=== PATIENT | female | born 1965 | race Caucasian/White ===

== ENCOUNTER → 2017-12-24 11:33 | Outpatient (CLI) | payer MEDICAID, SELFPAY ==
--- NOTE | 2017-12-24 16:05 | STRESSREP ---
Stress Test Report Treadmill EKG: Resting EKG: Normal sinus rhythm, normal axis, normal intervals, no evidence of previous myocardial infarction. Treadmill EKG: Patient exercise according to Wale protocol for 9 minutes and 0 seconds achieving a maximum workload of 10.1 METS. Resting heart rate was initially 75 beats a minute and edmundo to maximum 144 beats a minute which represents 85% of the maximal age corrected heart rate. Resting blood pressure was 152/98, edmundo to maximum of 200/108. Test was terminated due to attainment of target heart rate. During exercise patient's heart rating increased as expected. The patient had no dynamic EKG changes to suggest ischemia. No arrhythmias noted. Conclusions normal adequate treadmill EKG. Negative for ischemia by EKG criteria. No anginal symptoms noted. No arrhythmias noted. Hypertensive blood pressure response to exercise. Average exercise capacity for age. Test terminated due to the attainment of target heart rate. Patient tolerated the procedure well.
== END ==
PROVIDERS: Family Provider Internal Medicine; PCP Internal Medicine; Visit Provider Internal Medicine
DX: I48.92 Unspecified atrial flutter (principal); R07.9 Chest pain, unspecified
CPT/HCPCS: 93017; 93225; 93226

== ENCOUNTER → 2020-04-17 16:15 | Outpatient (CLI) | payer MEDICAID, SELFPAY ==
[2020-04-17 18:05] LABS: Absolute Lymphocyte Count 2.67 X10^3/uL (0.83-4.51); Basophil# 0.07 X10^3/uL; Basophil% 0.7 % (0-1); Eosinophil# 0.19 X10^3/uL; Eosinophils% 1.8 % (0-5); Hemoglobin 13.6 g/dL (12.0-15.0); Lymphocyte # 2.67 X10^3/ul (4.0); Mean Corp Hgb Conc 32.4 g/dL (32-36); Mean Corpuscular Volume 92.5 fL (81-99); Mean Platelet Vol. 9.1 fl (6.2-12.0); Monocyte# 0.75 X10^3/uL; NRBC Flagged by Analyzer 0 % (0-5); Neutrophil # 6.98 X10^3/uL (2.7-7.7); Neutrophil % 65.2 % (47-70); Platelet Count 452 K/mm3 (150-450); RBC Distribution Width CV 13.1 % (11.6-14.6); RBC Distribution Width SD 44.4 fl (35.1-43.9); Red Blood Count 4.54 M/mm3 (4.2-5.4); White Blood Count 10.7 K/mm3 (4.4-11.0)
[2020-04-17 18:34] LABS: ALB/GLOB Ratio 0.9 RATIO (0.9-2.4); AST(SGOT) 19 U/L (15-37); Alanine Aminotransfer ALT/SGPT 54 U/L (13-56); Albumin, Serum 3.4 g/dL (3.2-5.0); Alkaline Phosphatase 125 U/L (45-117); Anion Gap 5 (5-15); BUN 18 mg/dL (7-18); BUN/Creat Ratio 25.5 RATIO (10-20); Calcium,Total 9.4 mg/dL (8.5-10.1); Chloride 110 mmol/L (98-107); Creatinine, Serum 0.71 mg/dL (0.55-1.02); EST Glomerular Filtration Rate 92 mL/min (>60); Est Glom Filt Rate - Afr Amer 111 mL/min (>60); Globulin 3.7 g/dL (2.2-4.2); Glucose 96 mg/dL (74-106); Potassium 4.1 mmol/L (3.5-5.1); Protein, Total 7.1 g/dL (6.4-8.2); Sodium Level 141 mmol/L (136-145)
== END ==
PROVIDERS: PCP Internal Medicine; Referring Provider Dermatology; Visit Provider Dermatology
DX: L40.8 Other psoriasis (principal)
CPT/HCPCS: 36415; 80053; 85025

== ENCOUNTER 2020-05-09 22:47 | Emergency (ER) | payer MEDICAID, SELFPAY ==
[2020-05-09 22:48] VITALS: BP 131/74; PULSE 114; RESP 18; TEMP 36.2; O2SAT 96; BMI 32.6
--- NOTE | 2020-05-09 23:11 | ED.VIS.GEN ---
History of Present Illness Chief Complaint: Rash Narrative: Patient is a 54-year-old female who presents with concern for parasitic infection. She states she was bit by something a few months ago. Since that time she has noticed a rash on her body. She states that she has seen worms coming out of her skin eyes mouth and stool. She has been seen multiple times at an outpatient hospital. She was told they saw no evidence of parasitic infection. She had stool for ova and parasites which was reportedly negative. She is seeing a manager beverage. She has been treated with a steroid cream. She states that she recently had her vision go dim but this is since resolved. She is worried that she has worms in her eyes. She also complains of the feeling like there are worms in her head and liver. Past Medical History - Allergies and Home Meds Allergies/Adverse Reactions: Allergies No Known Allergies Allergy (Verified 05/09/20 22:51) Primary Care Physician: Valerie Medina MD [Primary Care Provider] - Past Medical History: - - Hypertension, cannabis abuse Smoking Status: Current every day smoker Review of Systems All systems negative except as indicated General: Denies: Fever Eyes: Reports: Visual changes - bilaterally ENT: Reports: Bilateral ear pain Cardiovascular: Denies: Chest pain Respiratory: Denies: Dyspnea, Cough Gastrointestinal: Reports: Constipation. Denies: Nausea, Diarrhea Musculoskeletal: Denies: Myalgias, Arthralgias Skin: Denies: Rash Neurological: Denies: Headache Hematologic: Denies: Easy bruising Allergy: Denies: Uticaria Physical Exam Vital Signs/Narrative: Vital Signs Temp Pulse Resp BP Pulse Ox 05/09/20 22:48 97.2 F L 114 H 18 131/74 H 96 Inital Vital Signs reviewed: Yes General: Well nourished Head: Normocephalic Eyes: EOMI, - - Funduscopic examination limited due to myosis but no obvious abnormality, normal sclera ENT: Moist mucous membranes Neck: Supple Cardiovascular: Regular rate, Regular rhythm Respiratory: No distress, CTA bilaterally. 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 I see no obvious evidence of a parasitic infection but I did write a repeat order for stool ova and parasites. Given that she has a foreign body sensation in her eye and reports transient visual changes I referred her to ophthalmology for further eye exam. I advised that she follow-up with her primary care physician. ED Disposition - Plan for ED Patient: Disposition: Home or Assisted Living Diagnosis: Feared condition not demonstrated Referrals: Valerie Medina MD [Primary Care Provider] - Delilah Mandujano MD [STAFF PHYSICIAN] -
--- NOTE | 2020-05-09 23:42 | ED.RN ---
SUPPLIES GIVEN FOR STOOL SAMPLE. PT STATES SHE WANTS TO DROP SAMPLE OFF AT [facility] IT IS CLOSER TO HER FRIEND WHO IS HER HOME CARE AND HOME HEALTH AIDES TEACHER. ORDER FORM SHOULD BE ACCEPTABLE THERE IT HAS ALL REQUIRED INFORMATION ON IT. EDUCATED PT ON SAMPLE COLLECTION TECHNIQUES, PT STATERS SHE HAS GIVEN A STOOL SAMPLE BEFORE. ALL QUESTIONS ANSWERED, NO FURTHER CONCERNS.
== END 2020-05-09 23:43 | disposition home or self-care (01) ==
PROVIDERS: Emergency Provider Emergency Medicine; PCP Internal Medicine
DX: Z71.1 Person with feared health complaint in whom no diagnosis is made (principal); H53.8 Other visual disturbances; F17.200 Nicotine dependence, unspecified, uncomplicated
CPT/HCPCS: 99281

== ENCOUNTER → 2020-11-09 14:25 | Outpatient (CLI) | payer MEDICAID, SELFPAY ==
[2020-11-09 15:48] LABS: Absolute Lymphocyte Count 2.59 X10^3/uL (0.83-4.51); Basophil# 0.09 X10^3/uL; Basophil% 1.2 % (0-1); Eosinophil# 0.31 X10^3/uL; Hemoglobin 15.2 g/dL (12.0-15.0); Lymphocyte # 2.59 X10^3/ul (0.83-4.51); Lymphocyte % 33.5 % (19-41); Mean Corp Hgb Conc 32.3 g/dL (32-36); Mean Corpuscular Hgb 30.1 pg (27.0-32.0); Mean Corpuscular Volume 93.1 fL (81-99); Mean Platelet Vol. 8.9 fl (6.2-12.0); Monocyte# 0.75 X10^3/uL; Monocyte% 9.7 % (0-10); NRBC Flagged by Analyzer 0 % (0-5); Neutrophil # 3.96 X10^3/uL (2.7-7.7); Neutrophil % 51.3 % (47-70); Platelet Count 538 K/mm3 (150-450); Red Blood Count 5.05 M/mm3 (4.2-5.4); White Blood Count 7.7 K/mm3 (4.4-11.0)
[2020-11-09 16:10] LABS: AST(SGOT) 30 U/L (15-37); Alanine Aminotransfer ALT/SGPT 61 U/L (13-56); Albumin, Serum 3.9 g/dL (3.2-5.0); Alkaline Phosphatase 138 U/L (45-117); Anion Gap 6 (5-15); BUN 14 mg/dL (7-18); BUN/Creat Ratio 17.9 RATIO (10-20); Calcium,Total 9.3 mg/dL (8.5-10.1); Chloride 107 mmol/L (98-107); Creatinine, Serum 0.78 mg/dL (0.55-1.02); EST Glomerular Filtration Rate 81 mL/min (>60); Est Glom Filt Rate - Afr Amer 99 mL/min (>60); Glucose 96 mg/dL (74-106); Potassium 3.9 mmol/L (3.5-5.1); Protein, Total 7.9 g/dL (6.4-8.2); Sodium Level 138 mmol/L (136-145); Thyroid Stim Hormone (TSH) 1.83 uIU/mL (0.358-3.74)
== END ==
PROVIDERS: PCP Family Medicine Geriatric Medicine; Visit Provider Family Medicine Geriatric Medicine
DX: R53.83 Other fatigue (principal)
CPT/HCPCS: 36415; 80053; 84443; 85025

== ENCOUNTER → 2020-12-07 16:50 | Outpatient (CLI) | payer MEDICAID, SELFPAY ==
[2020-12-07 17:46] LABS: ALB/GLOB Ratio 0.9 RATIO (0.9-2.4); AST(SGOT) 53 U/L (15-37); Alanine Aminotransfer ALT/SGPT 93 U/L (13-56); Albumin, Serum 3.6 g/dL (3.2-5.0); Alkaline Phosphatase 166 U/L (45-117); Anion Gap 7 (5-15); BUN 16 mg/dL (7-18); BUN/Creat Ratio 19.5 RATIO (10-20); Calcium,Total 9.5 mg/dL (8.5-10.1); Chloride 103 mmol/L (98-107); Creatinine, Serum 0.82 mg/dL (0.55-1.02); EST Glomerular Filtration Rate 77 mL/min (>60); Est Glom Filt Rate - Afr Amer 93 mL/min (>60); Globulin 3.9 g/dL (2.2-4.2); Glucose 141 mg/dL (74-106); Potassium 3.2 mmol/L (3.5-5.1); Protein, Total 7.5 g/dL (6.4-8.2); Sodium Level 138 mmol/L (136-145)
== END ==
PROVIDERS: PCP Family Medicine Geriatric Medicine; Visit Provider Family Medicine Geriatric Medicine
DX: R74.8 Abnormal levels of other serum enzymes (principal)
CPT/HCPCS: 36415; 80053

== ENCOUNTER → 2020-12-22 10:17 | Outpatient (CLI) | payer MEDICAID, SELFPAY ==
--- NOTE | 2020-12-22 10:18 | US_ITS ---
rScriptor Unformatted Report Format: Options: n 2f 2i act cap dr bray wm wcta sl lj Gender: Female Age: 55 years Exam: US Abdomen RUQ (limited) Comparison: History: LIVER ENZYMES ABN -- hx of cholecystectomy Contrast: Liver measures 19 cm. Impression new. Hepatomegaly. Cholecystectomy. Increased echogenicity of the liver is nonspecific but most commonly associated with hepatic steatosis. Impression. No hepatic masses. Electronically Signed: Milton Rivero MD (Brooks) at 16:25 EDT , Service support , US/Abdomen Limited
== END ==
PROVIDERS: PCP Family Medicine Geriatric Medicine; Referring Provider Family Medicine Geriatric Medicine; Visit Provider Family Medicine Geriatric Medicine
DX: R94.5 Abnormal results of liver function studies (principal)
CPT/HCPCS: 76705

== ENCOUNTER → 2021-01-23 10:25 | Outpatient (CLI) | payer MEDICAID, SELFPAY ==
--- NOTE | 2021-01-23 10:30 | US_ITS ---
STUDY: ABDOMINAL ULTRASOUND - ELASTOGRAPHY REASON FOR VISIT: Female, 55 years old. Fatty infiltration of the liver. TECHNIQUE: Liver stiffness measurements were obtained on a [employer] RS 85 ultrasound machine using a CA 1-7 probe following the SRU guidelines. 3 measurements were obtained using a 2-D-SWE method. The IQR/M was 11% suggesting a quality data set. TECHNICAL QUALITY: Adequate. COMPARISON: Comparison is made with prior sonogram dated 12/22/2020. FINDINGS: Liver: Fatty infiltration of the liver. Hepatomegaly. Median liver stiffness measured 5.5 kPa. US/Elastography Parenchyma/Organ IMPRESSION: Liver stiffness measures 5.5 kPa compatible with F1 Metavir score. Electronically Signed: Dustin Mcbride MD at 13:55 EDT , Service support ,
== END ==
PROVIDERS: PCP Family Medicine Geriatric Medicine; Referring Provider Family Medicine Geriatric Medicine; Visit Provider Family Medicine Geriatric Medicine
DX: K76.0 Fatty (change of) liver, not elsewhere classified (principal)
CPT/HCPCS: 76981

== ENCOUNTER → 2021-02-26 16:11 | Outpatient (CLI) | payer MEDICAID, SELFPAY ==
[2021-02-26 17:48] LABS: Absolute Lymphocyte Count 2.13 X10^3/uL (0.83-4.51); Absolute Neutrophil Count 6.7 X10^3/uL (2.0-7.7); Basophil# 0.07 X10^3/uL; Basophil% 0.7 % (0-1); Eosinophil# 0.27 X10^3/uL; Eosinophils% 2.6 % (0-5); Hematocrit 44.7 % (37-47); Hemoglobin 14.3 g/dL (12.0-15.0); Lymphocyte # 2.13 X10^3/ul (0.83-4.51); Lymphocyte % 20.7 % (19-41); Mean Corpuscular Hgb 29.4 pg (27.0-32.0); Mean Corpuscular Volume 91.8 fL (81-99); Mean Platelet Vol. 9.2 fl (6.2-12.0); Monocyte# 1.07 X10^3/uL; Monocyte% 10.4 % (0-10); NRBC Flagged by Analyzer 0 % (0-5); Neutrophil # 6.72 X10^3/uL (2.7-7.7); Neutrophil % 65.3 % (47-70); Platelet Count 461 K/mm3 (150-450); RBC Distribution Width CV 12.8 % (11.6-14.6); RBC Distribution Width SD 42.6 fl (35.1-43.9); Red Blood Count 4.87 M/mm3 (4.2-5.4); White Blood Count 10.3 K/mm3 (4.4-11.0)
[2021-02-26 18:10] LABS: Anion Gap 5 (5-15); BUN 16 mg/dL (7-18); BUN/Creat Ratio 17.9 RATIO (10-20); Calcium,Total 9.5 mg/dL (8.5-10.1); Chloride 104 mmol/L (98-107); EST Glomerular Filtration Rate 70 mL/min (>60); Est Glom Filt Rate - Afr Amer 84 mL/min (>60); Glucose 110 mg/dL (74-106); Potassium 3.6 mmol/L (3.5-5.1); Sodium Level 139 mmol/L (136-145)
== END ==
PROVIDERS: PCP Family Medicine Geriatric Medicine; Referring Provider Dermatology Pediatric Dermatology; Visit Provider Dermatology Pediatric Dermatology
DX: L29.9 Pruritus, unspecified (principal)
CPT/HCPCS: 36415; 80048; 85025

== ENCOUNTER → 2021-03-19 | Outpatient (CLI) | payer MEDICAID, SELFPAY ==
[2021-03-23 13:38] LABS: HPV APTIMA, High Risk Negative (Negative)
== END | disposition home or self-care (01) ==
PROVIDERS: PCP Family Medicine Geriatric Medicine; Visit Provider Nurse Practitioner Women's Health
DX: Z12.4 Encounter for screening for malignant neoplasm of cervix (principal)
CPT/HCPCS: 87624; 88175; G0145

== ENCOUNTER → 2024-09-29 | Outpatient (CLI) | payer MEDICAID, SELFPAY ==
--- NOTE | 2024-09-29 16:38 | RAD_ITS ---
PROCEDURE: CHEST PA AND LATERAL REASON FOR EXAM: 59-year-old female, bronchiectasis and shortness of breath x 8 years. TECHNIQUE: Frontal and lateral views of the chest. COMPARISON: None. FINDINGS: The heart size is normal. The mediastinal contour is unremarkable. Ill-defined density within the posterior mediastinum, visualized on the lateral radiograph. Additional small density within the left upper lobe measuring approximately 0.9 cm. Bibasilar atelectasis/scarring. No pleural effusion or pneumothorax. Degenerative changes are identified within the thoracic spine. Cholecystectomy clips. RAD/Chest PA and Lateral IMPRESSION: 1. Questionable ill-defined density within the posterior mediastinum, which may represent overlapping tissues, however pulmonary mass can not be excluded. Follow-up chest CT should be obtained if not recentl y performed for further evaluation. 2. Additional small left upper lobe density, which may represent a granuloma. This can also be evaluated on CT chest. Reading Location: [id number]
[2024-09-29 16:47] LABS: Absolute Lymphocyte Count 2.87 X10^3/uL (0.83-4.51); Absolute Neutrophil Count 7.8 X10^3/uL (2.0-7.7); Basophil# 0.11 X10^3/uL; Basophil% 0.9 % (0-1); Eosinophil# 0.27 X10^3/uL; Eosinophils% 2.2 % (0-5); Hematocrit 44.1 % (37-47); Hemoglobin 14.6 g/dL (12.0-15.0); Lymphocyte # 2.87 X10^3/ul (0.83-4.51); Lymphocyte % 23.5 % (19-41); Mean Corp Hgb Conc 33.1 g/dL (32-36); Mean Corpuscular Volume 90.6 fL (81-99); Mean Platelet Vol. 8.7 fl (6.2-12.0); NRBC Flagged by Analyzer 0 % (0-5); Neutrophil # 7.78 X10^3/uL (2.7-7.7); Neutrophil % 63.7 % (47-70); Platelet Count 500 K/mm3 (150-450); RBC Distribution Width CV 12.8 % (11.6-14.6); RBC Distribution Width SD 42.1 fl (35.1-43.9); Red Blood Count 4.87 M/mm3 (4.2-5.4); White Blood Count 12.2 K/mm3 (4.4-11.0)
[2024-09-29 16:59] LABS: D-Dimer Quantitative (DVT/PE) 0.33 FEU/ug/m (0.27-0.49)
[2024-09-29 20:20] LABS: ALB/GLOB Ratio 1.1 RATIO (0.9-2.4); AST(SGOT) 30 U/L (<=31); Alanine Aminotransfer ALT/SGPT 56 U/L (<=34); Alkaline Phosphatase 152 U/L (35-104); Anion Gap 15 (5-15); BUN 9 mg/dL (4-19); BUN/Creat Ratio 14.4 RATIO (10-20); Calcium,Total 9.6 mg/dL (7.6-11.0); Carbon Dioxide 23.6 mmol/L (21.0-32.0); Chloride 100 mmol/L (98-108); Cholesterol 271 mg/dL (<=200); EST Glomerular Filtration Rate 104 (>60); Globulin 3.5 g/dL (2.2-4.2); Glucose 88 mg/dL (70-99); Hepatitis C Antibody Nonreactive (Nonreactive); High Density Lipoprotein 50 mg/dL; Low Density Lipoprotein Calc. 179 mg/dL; Potassium 4.1 mmol/L (3.3-5.1); Protein, Total 7.5 g/dL (5.9-8.4); Sodium Level 139 mmol/L (133-145); Total Bilirubin 0.27 mg/dL (0.00-1.30); Triglycerides 213 mg/dL; Very Low Density Lipoprotein 43 mg/dL (5-40); cholesterol:hdl ratio screen 5.43
== END | disposition home or self-care (01) ==
PROVIDERS: PCP Family Medicine Geriatric Medicine; Visit Provider Family Medicine Geriatric Medicine
DX: Z13.89 Encounter for screening for other disorder (principal); J47.9 Bronchiectasis, uncomplicated; E78.5 Hyperlipidemia, unspecified; R68.83 Chills (without fever); R53.83 Other fatigue
CPT/HCPCS: 36415; 71046; 80053; 80061; 84443; 85025; 85379; 86803; 87070; 87077; 87102; 87205; 87206; 87631

== ENCOUNTER → 2024-10-13 | Outpatient (CLI) | payer MEDICAID, SELFPAY ==
--- NOTE | 2024-10-13 13:26 | BI_ITS ---
EXAM: SCRN MAMM (CAD)W/TREVON BILAT 10/13/2024 CLINICAL HISTORY: F, Age 59 y/o , SCREENING TECHNIQUE: Bilateral Diagnostic digital breast tomosynthesis with 2D and 3D images. Computer aided detection. COMPARISON: No actual films are available for comparison. A prior screening mammogram report from the [facility] dated 12/31/2017 was reviewed. FINDINGS: TISSUE DENSITY: The breast tissue is composed of scattered area of fibroglandular density. Bilateral Breast Mammographic Findings: There are no suspicious masses, suspicious calcifications, architectural distortion or secondary signs of malignancy identified in either breast. Benign-appearing round microcalcifications are seen in both breasts. BI/SCRN MAMM (CAD)W/TREVON BILAT IMPRESSION: Right Breast: BIRADS 2 BENIGN FINDING. Left Breast: BIRADS 2 BENIGN FINDING. OVERALL FINAL ASSESSMENT: BIRADS 2 BENIGN FINDING. RECOMMENDATION: Routine annual follow-up in 1 Year A letter with findings and recommendations will be mailed to the patient. Reading Location: [id number]
== END | disposition home or self-care (01) ==
LOC: OPBI 13:24
PROVIDERS: PCP Family Medicine Geriatric Medicine; Referring Provider Family Medicine Geriatric Medicine; Visit Provider Family Medicine Geriatric Medicine
DX: Z12.31 Encounter for screening mammogram for malignant neoplasm of breast (principal)
CPT/HCPCS: 77063; 77067

== ENCOUNTER → 2024-10-14 | Outpatient (CLI) | payer MEDICAID, SELFPAY ==
[2024-10-14 16:34] LABS: AST(SGOT) 38 U/L (<=31); Alanine Aminotransfer ALT/SGPT 56 U/L (<=34); Albumin, Serum 4.1 g/dL (3.5-5.0); Alkaline Phosphatase 141 U/L (35-104); Bilirubin, Direct 0.08 mg/dL (0.00-0.30); Globulin 3.6 g/dL (2.2-4.2); Protein, Total 7.7 g/dL (5.9-8.4); Total Bilirubin 0.22 mg/dL (0.00-1.30)
[2024-10-14 16:49] LABS: Hepatitis B Surface Antibody Nonreactive; Hepatitis B Surface Antigen Nonreactive (Nonreactive)
[2024-10-16 05:07] LABS: GGTP 235 IU/L (0-60); Hepatitis A AB, Total Negative (Negative); Hepatitis B Core Ab Total Negative (Negative)
== END | disposition home or self-care (01) ==
LOC: LAB 15:33
PROVIDERS: PCP Family Medicine Geriatric Medicine; Referring Provider Nurse Practitioner Acute Care; Visit Provider Nurse Practitioner Acute Care
DX: R74.8 Abnormal levels of other serum enzymes (principal); R14.0 Abdominal distension (gaseous); R10.9 Unspecified abdominal pain; R19.7 Diarrhea, unspecified; R15.9 Full incontinence of feces
CPT/HCPCS: 36415; 80076; 82977; 86704; 86706; 86708; 87340

== ENCOUNTER → 2024-10-25 | Outpatient (CLI) | payer MEDICAID, SELFPAY ==
--- NOTE | 2024-10-25 13:40 | CT_ITS ---
PROCEDURE: LOW DOSE CT LUNG SCREENING 10/25/2024 REASON FOR EXAM: NICOTINE DEPENDENCE, CIGARETTES, UNCOMPLICATED TECHNIQUE: Low Dose CT Lung screening without contrast. Coronal and Sagittal reconstruction series were provided. One or more dose reduction techniques were used (e.g., Automated exposure control, adjustment of the mA and/or kV according to patient size, use of iterative reconstruction technique). REFERENCE LINK: Driver[facility] Lung-RADS RADIATION DOSE SUMMARY: CTDlvol: 3.02 mGy DLP: 90.25 mGycm COMPARISON: Chest radiograph dated September 29, 2024. FINDINGS: PULMONARY NODULES: (Only nodules >3mm are reported) Nodules described below are on series 1 unless otherwise specified. Pulmonary Nodules: 7 mm calcified granuloma in the posterior aspect of the left upper lobe as seen on axial image number 49 no suspicious nodules are seen. Findings suggestive of linear scarring at the lung bases slightly worse in the posterior medial aspects of both lower lobes. This most likely corresponds to the findings on the chest radiograph. Hardware:None Lymph Nodes:No mediastinal lymph nodes are seen. Heart and Vasculature:UnremarkableAtherosclerotic calcifications of the thoracic aorta. Thoracic aorta and pulmonary arteries have normal contours; noncontrast technique limits evaluation. Coronary Artery Calcifications: Absent Lungs and Airways: Findings suggestive of scarring at the lung bases. Pleura:Unremarkable Upper Abdomen:Unremarkable Bones:Degenerative changes of the thoracic spine. CT/Low Dose CT Lung Screening IMPRESSION: No suspicious nodules are seen. Findings suggestive of scarring at the lung ba ses. Coronary artery calcification (CAC) is is absent Lung-RADS Category: 2 BENIGN (BASED ON IMAGING FEATURES OR INDOLENT BEHAVIOR). RECOMMEND 12-MONTH SCREENING LDCT. Other Significant Findings: None. Reading Location: [facility]
== END | disposition home or self-care (01) ==
LOC: CT 13:35
PROVIDERS: PCP Family Medicine Geriatric Medicine; Referring Provider Family Medicine Geriatric Medicine; Visit Provider Family Medicine Geriatric Medicine
DX: Z12.2 Encounter for screening for malignant neoplasm of respiratory organs (principal); F17.210 Nicotine dependence, cigarettes, uncomplicated; R06.02 Shortness of breath
CPT/HCPCS: 71271

== ENCOUNTER → 2024-11-11 | Outpatient (CLI) | payer MEDICAID, SELFPAY ==
[2024-11-11 17:02] LABS: Prothrombin Time (Protime)PT. 12.9 SECONDS (11.7-14.9)
[2024-11-11 17:55] LABS: AST(SGOT) 27 U/L (<=31); Alanine Aminotransfer ALT/SGPT 47 U/L (<=34); Albumin, Serum 4.3 g/dL (3.5-5.0); Alkaline Phosphatase 149 U/L (35-104); Bilirubin, Direct 0.11 mg/dL (0.00-0.30); Ferritin 145 ng/mL (22-378); Globulin 3.4 g/dL (2.2-4.2); Iron 76 ug/dL (50-170); Iron Binding Capacity,Total 359 ug/dL (250-450); Iron Binding Capacity,Unsat 283 ug/dL (228-428); Protein, Total 7.7 g/dL (5.9-8.4); Total Bilirubin 0.27 mg/dL (0.00-1.30)
[2024-11-15 13:08] LABS: ANTINUCLEAR ANTIBODIES DIRECT Negative (Negative); Anti-Mitochondrial AB <20.0 Units (0.0-20.0)
[2024-11-16 10:08] LABS: Anti-Smooth Muscle ABS 3 Units (0-19); Cytoplasmic Ab (C-ANCA) <1:20 titer (Neg:<1:20); Immunoglobulin A 257 mg/dL (87-352); Perinuclear Ab (P-ANCA) <1:20 titer (Neg:<1:20); t-Transglutaminase IgA <2 U/mL (0-3)
== END | disposition home or self-care (01) ==
LOC: LAB 15:56
PROVIDERS: PCP Family Medicine Geriatric Medicine; Referring Provider Nurse Practitioner Acute Care; Visit Provider Nurse Practitioner Acute Care
DX: R19.7 Diarrhea, unspecified (principal); R74.8 Abnormal levels of other serum enzymes; R94.5 Abnormal results of liver function studies
CPT/HCPCS: 36415; 80076; 82728; 82784; 83516; 83540; 83550; 85610; 86037; 86038

== ENCOUNTER → 2024-12-07 | Outpatient (CLI) | payer MEDICAID, SELFPAY ==
--- NOTE | 2024-12-07 07:42 | US_ITS ---
PROCEDURE: ABD LIMITED W/ ELASTOGRAPHY REASON FOR EXAM: ADD SPLEEN Fatty infiltration of the liver. COMPARISON: None. TECHNIQUE: Right upper quadrant abdominal ultrasound. Eran ElastQ Imaging shear wave elastography for non-invasive assessment of liver tissue stiffness. Eran EPIQ Elite. FINDINGS: LIVER: Size: Enlarged (hepatomegaly) Length: 19.2 cm Echotexture: Diffusely echogenic suggesting fatty infiltration Contour: Normal Lesions: None identified Elastography: EQI Med: 9.13 kPa EQI Med Terrence: 1.73 m/s IQR/Med: 22 %* GALLBLADDER: Surgically absent. COMMON BILE DUCT: Normal measuring 4 mm . PANCREAS: Normal Visualized portions of the right kidney are unremarkable. No right upper quadrant ascites. Spleen: The spleen measures 9.9 cm x 3.8 cm x 3.7 cm. US/ABD Limited w/ Elastography IMPRESSION: MODERATE TO SEVERE HEPATIC FIBROSIS F2/F3 Reference Values: SRU <1.37 m/s (5.7kPa): No to mild fibrosis 1.37 m/s - 2.2 m/s: Moderate to severe fibrosis >2.2 m/s (15kPa): Significant fibrosis / cirrhosis METAVIR Score F2 or higher: 1.34 m/s (5.7kPa) F3 or higher: 1.55 m/s (7.3kPa) F4: 1.80 m/s (10kPa) * If the IQR/Med is >30%, the variance in the measurements is a large and the a ccuracy of the measurement may be in question. Reading Location: [facility]
== END | disposition home or self-care (01) ==
LOC: US 07:38
PROVIDERS: PCP Family Medicine Geriatric Medicine; Referring Provider Nurse Practitioner Acute Care; Visit Provider Nurse Practitioner Acute Care
DX: K74.00 Hepatic fibrosis, unspecified (principal)
CPT/HCPCS: 76705; 76981

== ENCOUNTER 2024-12-23 05:34 | Day surgery (SDC) | payer MEDICAID, SELFPAY ==
[2024-12-23 06:00] VITALS: BP 161/83; PULSE 97; RESP 18; TEMP 37; O2SAT 96; BMI 32.2
[2024-12-23] MEDS: Lactated Ringers 1,000 ML 15 ML IV (06:12)
--- NOTE | 2024-12-23 06:24 | PCM.PRE.AN2 ---
ASA Classification* ASA Classification ASA Classification: 3 (HTN, COPD, smoker ) Assessment & Plan Anesthesia* Anesthesia Assessment Anesthesia Assessment: Discussed sedation and/or anesthesia options, risks, benefits, and alternatives with patient/parents/legal guardian/POA. Questions invited. The patient/parents/legal guardian/POA seems to understand and agrees to proceed with anesthesia plan. Reviewed the physical assessment, medical history, allergy history and patient home medications list prior to surgery/procedure/anesthetic and documented any changes. Performed airway and anesthesia risk assessments. Anesthesia Type Anesthesia Type: General History Source History Obtained from:: Patient and Chart Anesthesia Focused Assessment* Temperature: 98.6 F Pulse Rate: 97 Blood Pressure: 161/83 Respiratory Rate: 18 Pulse Ox: 96 Oxygen Delivery Method: Room Air Airway Assessment Mouth opens: >3 cm Mallampati Score: II Teeth Condition: Intact Neck Range of motion (ROM): Full ROM Focused Labs Anesthesia Preop lab: CBC WBC 12.2 K/mm3 (4.4-11.0) H 09/29/24 16:21 09/29/24 RBC 4.87 M/mm3 (4.2-5.4) 09/29/24 16:21 09/29/24 Hgb 14.6 g/dL (12.0-15.0) 09/29/24 16:21 09/29/24 Hct 44.1 % (37-47) 09/29/24 16:21 09/29/24 Plt Count 500 K/mm3 (150-450) H 09/29/24 16:21 09/29/24 CHEMISTRY Potassium 4.1 mmol/L (3.3-5.1) 09/29/24 16:21 09/29/24 Sodium 139 mmol/L (133-145) 09/29/24 16:21 09/29/24 BUN 9 mg/dL (4-19) 09/29/24 16:21 09/29/24 Creatinine 0.60 mg/dL (0.70-1.20) L 09/29/24 16:21 09/29/24 Glucose 88 mg/dL (70-99) 09/29/24 16:21 09/29/24 TSH 1.630 uIU/mL (0.300-4.200) 09/29/24 16:21 09/29/24 COAG PT 12.9 SECONDS (11.7-14.9) 11/11/24 16:14 11/11/24 Pre-Assessment Diagnosis/Proposed Procedure Planned Operative Procedure(s): EGD, COLONOSCOPY Anesthesia History Anesthesia History - sound cutter: Anesthesia History - sound cutter Hx Hospitalization No 12/17/24 14:37 Any Problems With Anesthesia No 12/17/24 14:37 Cholinesterase deficiency No 12/17/24 14:37 You/Your Family Experience No 12/17/24 14:37 fever (hyperthermia) with Relationship Recent Exposure to Contagious No 12/23/24 05:58 Disease Does patient have nerve No 12/17/24 14:37 stimulator Patient instructed to have device shut off --Does patient have Pacemaker No 12/23/24 06:00 or ICD? When Was Last Pacemaker Check QUESTION #4 FULL TEXT: You/Your Family Experience fever (hyperthermia) with Anesthesia Last Oral Intake Last Oral intake: Last Oral Intake NPO since 00:00 12/23/24 06:00 Meds taken in AM with sips of water? Meds patient instructed to take am of surgery PONV PONV - sound cutter: PONV - sound cutter Female Yes 12/17/24 14:37 HX of Motion Sickness Yes 12/17/24 14:37 HX of N/V After Surgery No 12/17/24 14:37 Non-Smoker No 12/17/24 14:37 Duration of Surgery greater No 12/17/24 14:37 than 60 minutes Number of Risk Factors 2 12/17/24 14:37 PONV Score Moderate Risk 12/17/24 14:37 Height & Weight Height & Weight: Anesthesia: Height & Weight Height 5 ft 3 in 12/23/24 06:00 Weight: 82.554 kg 12/23/24 06:00 Body Mass Index (BMI) 32.2 12/23/24 06:00 Respiratory Assessment Respiratory Assessment - sound cutter: Respiratory Tract Infection Hx - sound cutter Hx Respiratory Tract Infection No 12/17/24 14:37 STOP Sleep Apnea STOP Sleep Apnea - sound cutter: STOP Sleep Apnea - sound cutter Hx Hypertension Yes 12/17/24 14:37 Hx Sleep Apnea No 12/17/24 14:37 CPAP BIPAP Do you snore loudly (louder No 12/17/24 14:37 than talking or can be heard Do you often feel tired/ No 12/17/24 14:37 fatigued/ sleepy during daytime? Has anyone observed you stop No 12/17/24 14:37 breathing during sleep? STOP Results Negative 12/17/24 14:37 QUESTION #5 FULL TEXT : Do you snore loudly (louder than talking or can be heard through closed doors)? Tobacco Use History Tobacco Use History - sound cutter: Tobacco Use History - sound cutter Tobacco Use Smoking Status Current every day smoker 12/17/24 14:37 Hx Tobacco Use Yes 12/17/24 14:37 Years Smoking Packs Smoked per Day Smoking Cessation Date was within the last 15 years Hx Smoking Cessation Date Hx Smoking Cessation Counseling Hematologic Medial History Hematologic Hx - sound cutter: Hematologic Medical Hx - clinical documentation specialist Hx of Blood Transfusion No 12/17/24 14:37 Hx of Transfusion in last 3 No 12/17/24 14:37 Months Date of Last Transfusion (if within last 3 months) Ever experience any problems No 12/17/24 14:37 with transfusion(s)? Specify any problems Hx of Preganancy in last 3 No 12/17/24 14:37 Months Nurse Filling Out Transfusion CECIL 12/17/24 14:37 & Questions: Date: 12/17/24 12/17/24 14:37 Time: 14:39 12/17/24 14:37 Patient unable to answer at this time (ie. confused, unrespo /Reproduction History /Reproductive History - sound cutter: /Reproductive Hx- sound cutter Hx Now No 12/17/24 14:37 Gestational Age (in weeks): EDC: Hx Hx Para Hx Section SAB No 12/17/24 14:37 Active Medications Active Medications: Current Medications Generic Name Dose Route Start Last Admin Trade Name Freq PRN Reason Stop Dose Admin Lactated Ringer's 1,000 mls @ 15 mls/hr 12/23/24 05:45 12/23/24 06:12 IV 15 mls/hr .Q48H IQRA Administration PFSH Medical History (Updated 12/17/24 @ 14:48 by Annetta Miller) Difficulty swallowing Post-menopausal Redness of skin Gastric reflux Smoker Shortness of breath on exertion Hoarseness History of edema History of Holter monitoring History of stress test Hypertension Hyperlipidemia Tobacco abuse Scabies Home Medications ?Medication ?Instructions ?Recorded ?Last Taken ?Type albuterol sulfate 90 mcg/actuation 1 inh inhalation Q4-6H PRN 10/11/24 Unknown History breath activated powder inhaler shortness of breath 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 10/11/24 Unknown History ondansetron HCl 4 mg tablet 4 mg PO Q8H #5 tabs 10/14/24 Unknown Rx peg 3350-electrolytes 236 240 ml PO Q10M #4,000 mL 10/14/24 12/22/24 Rx gram-22.74 gram-6.74 gram-5.86 gram solution (Golytely) losartan 100 mg tablet 100 mg PO QDAY 11/24/24 12/23/24 04:00 History metoprolol tartrate 25 mg tablet 12.5 mg PO BID 11/24/24 12/22/24 History Allergy/AdvReac Type Severity Reaction Status Date / Time No Known Allergies Allergy Verified 12/23/24 05:56 Family History Father Diabetes Mother CAD (coronary artery disease) CKD stage 4 due to type 1 diabetes mellitus Hyperlipidemia Uterine cancer Hypothyroidism Other Alzheimer's dementia Cancer Hypertension Surgical History (Updated 12/17/24 @ 14:37 by Annetta Miller) History of tonsillectomy History of esophagogastroduodenoscopy (EGD) History of colonoscopy H/O dilation and curettage History of lumpectomy of left breast History of cholecystectomy Social History household members: none number of children: 1 current occupational status: unemployed history of recent travel: No Smoking Status: Current every day smoker tobacco type: cigarettes alcohol intake: current alcohol intake frequency: a few times a month substance use type: former substance user what type of physical activity do you participate in: other frequency: daily seatbelt use: always do you feel safe at home: Yes additional social history: single Review of Systems (Anesthesia) ROS Narrative System reviewed and no additional complaints, except as documented. Physical Exam Const alert, oriented x3 and average body habitus Resp normal respiratory effort, normal air movement and clear to auscultation bilaterally Cardio regular rate, regular rhythm, no murmurs and diaphoretic
[2024-12-23 06:25] VITALS: BP 161/83; PULSE 97; RESP 18; TEMP 37; O2SAT 96
--- NOTE | 2024-12-23 06:30 | EGD_PTH ---
PATIENT: JERO VALDOVINOS LOC: [facility] U#:[id number] AGE/SX: 59/F ROOM: RE12/23/[address]: Dr. Stefano Talbot DO : 1965 BED: DIS: 12/23/2024 SPEC #: [id number] RECD: 12/23/24 09:30 STATUS: SHEELA MACY #: [id number] VARSHA: 12/23/24 06:[address]: Stefano Talbot DEPT: SURGICAL PATHOLOGY RECD BY: Melvin Olsen ENTERED: 12/23/24 10:29 SP TYPE: EGD BIOPSY MARY DR: Dr. Gabo Godinez MD Tissues: A - Duodenum, NOS B - Gastric mucous membrane C - Esophagus, NOS D - Ileum, NOS E - COLON BIOPSY Procedures: Immunohistochemical Stains Surgery Specimen Level IV HEADER OPERATION: Colonoscopy, EGD, biopsy PRE-OP DIAGNOSIS: Abdominal pain, abdominal distention, elevated liver enzymes TISSUE SUBMITTED: A- Duodenum biopsy, B- Gastric body biopsy, C- Distal esophagus biopsy, D- Terminal ileum biopsy, E- Random colon biopsy MICROSCOPIC DIAGNOSIS A. Small bowel, duodenum, biopsy: * Normal villous architecture with focal slight intraepithelial lymphocytosis - see note. * Note: This pattern of injury is etiologically nonspecific?and the differential diagnosis includes sensitivity to gluten and non-gluten proteins, small intestinal bacterial overgrowth, stasis related changes, infection, protein calorie malnutrition, tropical sprue, and medication injury (NSAIDs, Olmesartan / Benicar, Mycophenolic acid, Idelalisib, for example). If celiac disease is a clinical concern, additional clinical studies, such as tTG-IgA, are recommended. B. Stomach, body, biopsy: * Oxyntic mucosa with features of reactive gastropathy. * IHC negative for H pylori organisms. C. Esophagus, distal, biopsy: * Benign squamous mucosa. * Columnar mucosa with goblet cell metaplasia - see note. * Negative for dysplasia. * Note: The diagnosis depends on the location of the biopsy and the extent of the mucosal irregularity. If the biopsy originates from the tubular esophagus and the mucosal irregularity extends at least 1 cm above the top of the gastric folds, this represents Borrero mucosa. If the biopsy originates from the gastric cardia and/or the mucosal irregularity is less than 1 cm in extent, this represents intestinal metaplasia. D. Small bowel, terminal ileum, biopsy: * No specific pathologic change. E. Colon, random, biopsy: * No specific pathologic change. MICROSCOPIC DESCRIPTION Slides are reviewed. GROSS DESCRIPTION A. Received in formalin in a container labeled with the patient's name, date of , and duodenum biopsy are multiple ibarra-pink fragments of mucosal tissue measuring 1.5 x 0.5 x 0.2 cm in aggregate. Submitted in toto in A1. B. Received in formalin in a container labeled with the patient's name, date of , and gastric body biopsy are 2 ibarra-pink fragments of mucosal tissue measuring 0.3 x 0.3 x 0.2 cm and 0.5 x 0.2 x 0.2 cm. Submitted in toto in B1. C. Received in formalin in a container labeled with the patient's name, date of , and distal esophagus biopsy are 2 white-pink fragments of mucosal tissue each measuring 0.3 x 0.3 x 0.3 cm. Submitted in toto in C1. D. Received in formalin in a container labeled with the patient's name, date of , and terminal ileum biopsy are 2 ibarra-pink fragments of mucosal tissue each measuring 0.3 x 0.3 x 0.2 cm. Submitted in toto in D1. E. Received in formalin in a container labeled with the patient's name, date of , and random colonic biopsy are multiple ibarra-pink fragments of mucosal tissue measuring 1.3 x 0.7 x 0.3 cm in aggregate. Submitted in toto in E1. [facility] 12-23-2024 CPT:[id number] ADDENDUM ADDENDUM ADDENDUM ADDENDUM ADDENDUM ADDENDUM ADDENDUM ADDENDUM ADDENDUM ADDENDUM ADDENDUM ADDENDUM 04/14/2025 08:48 ADDENDUM 04/14/2025 08:48 ADDENDUM 04/14/2025 08:48 ADDENDUM 04/14/2025 08:48 ADDENDUM 04/14/2025 08:48 This addendum is added to incorporate an outside pathology consultation report. Bridj - TISSUE CYPHER - Block C1 Risk class: Low Risk Score: 3.9 5-year probability of progression: 3% Please see complete above mentioned consultation report in EMR
--- NOTE | 2024-12-23 06:54 | PCM.HP.STD ---
HPI - General General Date of Admission: 12/23/24 Date of Service: 12/23/24 HPI Narrative JERO VALDOVINOS, is a 59 F who presents for evaluation of abdominal pain. Elastography 01/23/2001 Liver stiffness measures 5.5 kPa compatible with F1 Metavir score. ABD US 12/22/2020 liver steatosis 09/29/2024 ALT 56, ALP 152, HCV Ab negative [facility] Est OV 3.20.25- [facility] established for yeast in stool, elevated liver enzymes, abdominal pain. reports every single doctor has pushed me out the door and says I'm crazy. she reports she is very sick. reports she completed stool testing with [facility] in [place]. she states she was treated with Ivermectin. she reports the past two weeks she feels fluid build up in her abdomen resulting in diarrhea with fecal incontinence. she is presently on Ivermectin. Colonoscopy per patient was last performed within the past 12 years, she states this was normal. denies any family h/o colon CA. 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 she has tattoos. denies any family h/o liver disease. denies any h/o IVDU. states her liver enzymes were high 2 weeks ago. she reports she has been drinking oregano oil for her lungs. states she was an occasional alcohol drinker, denies any alcohol recently. last had a twisted tea 3 months ago. denies any h/o heavy drinking. she denies taking any NSAIDS. intermittent HB. she reports she has a CT of lung coming up, ECHO and PFT OV 11.24. Test results from [place] have not been received. Reports PCP encouraged stopping oregano oil d/t elevated liver enzymes, although did not take advice. Started all natural liver cleanse and continues Ivermectin. Reports abdominal pain and bloating has improved over last 3 weeks. Patient complained that she has some more infestation and she is taking ivermectin prescribed by Dr. Godinez [facility] Medical History Difficulty swallowing Post-menopausal Redness of skin Gastric reflux Smoker Shortness of breath on exertion Hoarseness History of edema History of Holter monitoring History of stress test Hypertension Hyperlipidemia Tobacco abuse Scabies Home Medications ?Medication ?Instructions ?Recorded ?Last Taken ?Type albuterol sulfate 90 mcg/actuation 1 inh inhalation Q4-6H PRN 10/11/24 Unknown History breath activated powder inhaler shortness of breath 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 10/11/24 Unknown History ondansetron HCl 4 mg tablet 4 mg PO Q8H #5 tabs 10/14/24 Unknown Rx peg 3350-electrolytes 236 240 ml PO Q10M #4,000 mL 10/14/24 12/22/24 Rx gram-22.74 gram-6.74 gram-5.86 gram solution (Golytely) losartan 100 mg tablet 100 mg PO QDAY 11/24/24 12/23/24 04:00 History metoprolol tartrate 25 mg tablet 12.5 mg PO BID 11/24/24 12/22/24 History Allergy/AdvReac Type Severity Reaction Status Date / Time No Known Allergies Allergy Verified 12/23/24 05:56 Family History Father Diabetes Mother CAD (coronary artery disease) CKD stage 4 due to type 1 diabetes mellitus Hyperlipidemia Uterine cancer Hypothyroidism Other Alzheimer's dementia Cancer Hypertension Surgical History History of tonsillectomy History of esophagogastroduodenoscopy (EGD) History of colonoscopy H/O dilation and curettage History of lumpectomy of left breast History of cholecystectomy Social History household members: none number of children: 1 current occupational status: unemployed history of recent travel: No Smoking Status: Current every day smoker tobacco type: cigarettes alcohol intake: current alcohol intake frequency: a few times a month substance use type: former substance user what type of physical activity do you participate in: other frequency: daily seatbelt use: always do you feel safe at home: Yes additional social history: single ROS Constitutional Constitutional: Denies fatigue, fever(s), poor appetite, weight gain or weight loss Gastrointestinal Gastrointestinal: Denies belching, bloating, change in bowel habits, change in stool character, chewing difficulty, coffee ground emesis, constipation, cramping, diarrhea, dyspepsia, dysphagia, early satiety, excessive flatus, fecal incontinence, heartburn, hematemesis, hematochezia, hemorrhoids, loose stools, melena, nausea, odynophagia, rectal bleeding, tenesmus, vomiting or weight changes Vital Signs Vital Signs Vital Signs: 12/23/24 05:58 12/23/24 06:00 12/23/24 06:25 Temperature 98.6 F 98.6 F Temperature Source Temporal Pulse Rate 97 97 Respiratory Rate 18 18 Respiratory Pattern Normal Blood Pressure 161/83 H 161/83 H Blood Pressure Mean 109 Blood Pressure Source Monitor Blood Pressure Position Semi-Fowlers Blood Pressure Location Left Arm Pulse Ox 96 96 Oxygen Delivery Method Room Air Room Air Weight Weight: 182 lb Body Mass Index (BMI) 32.2 Physical Exam Const alert, oriented x3 and average body habitus Resp normal respiratory effort, normal air movement and clear to auscultation bilaterally Cardio regular rate, regular rhythm, no murmurs and diaphoretic Assessment & Plan Assessment/Plan (1) Abdominal pain: QUALIFIERS: Abdominal location: generalized Qualified Code(s): R10.84 - Generalized abdominal pain (2) Abdominal distension: (3) Elevated liver enzymes: PLAN: Assessment and Plan Assessment and Plan (1) Elevated liver enzymes: Status: Acute Plan: Elevated liver enzymes probably due to DILI, drug-induced liver injury. Patient states about 20 years ago she was told that she will need liver transplant and was exposed to arsenic from her work. She received some chelating agent. She has d complaints of liver is squeezing and falling out of the place. She also takes ivermectin, organo oil and other herbal medication. P-ANCA is positive. Comprehensive labs to rule out other causes of liver injury ordered. She is scheduled for liver ultrasound with elastography. Follow-up with Marcus Ortiz in 3-month (2) Diarrhea: Status: Acute Qualifiers: Diarrhea type: presumed infectious Qualified Code(s): R19.7 - Diarrhea, unspecified Plan:
[2024-12-23 07:40] VITALS: BP 127/82; BP 161/83; PULSE 99; RESP 18; TEMP 36.7; O2SAT 96
--- NOTE | 2024-12-23 07:44 | PCM.POST.ANE ---
Anesthesia: Postop Eval I Current Vital Signs Temperature: 98 F Pulse Rate: 98 Blood Pressure: 127/82 Respiratory Rate: 18 Pulse Ox: 98 Oxygen Delivery Method: Room Air Assessment Airway patent: Yes Spontaneous unlabored respirations: Yes Mental status: Awake and Calm nausea: No Vomiting: No Anesthesia Complication: No Fluid Hydration Crystalloid volume administer (ml): 700 Total IV fluid infused: 700 Progress Note Anesthesia document: Postop Eval 1 completed: Yes
[2024-12-23 07:45] VITALS: BP 115/91; BP 127/82; BP 161/83; PULSE 98; RESP 18; TEMP 36.6; O2SAT 97; O2SAT 98
--- NOTE | 2024-12-23 07:45 | OP.EGD_ITS ---
Patient Name: Abeba Juarez Procedure Date: 12/23/2024 6:18 AM Date of : 1965 Age: 59 Procedure: Upper GI endoscopy Indications: Epigastric abdominal pain, Functional Dyspepsia, Indigestion Providers: Stefano Talbot DO Referring MD: Gabo Godinez MD Medicines: Propofol per Anesthesia Patient Profile: This is a 59 year old female. Refer to note in patient chart for documentation of history and physical. Patient has symptoms of chronic abdominal cramping, chronic epigastric abdominal pain, chronic dyspepsia and chronic nausea. Complications: No immediate complications. Procedure: Pre-Anesthesia Assessment: - Prior to the procedure, a History and Physical was performed, and patient medications and allergies were reviewed. The patient is competent. The risks and benefits of the procedure and the sedation options and risks were discussed with the patient. All questions were answered and informed consent was obtained. Patient identification and proposed procedure were verified by the physician in the pre-procedure area. Mental Status Examination: alert and oriented. Airway Examination: normal oropharyngeal airway and neck mobility. Respiratory Examination: clear to auscultation. CV Examination: normal. Prophylactic Antibiotics: The patient does not require prophylactic antibiotics. Prior Anticoagulants: The patient has taken no anticoagulant or antiplatelet agents except for NSAID medication. ASA Grade Assessment: II - A patient with mild systemic disease. After reviewing the risks and benefits, the patient was deemed in satisfactory condition to undergo the procedure. The anesthesia plan was to use monitored anesthesia care (MAC). Immediately prior to administration of medications, the patient was re-assessed for adequacy to receive sedatives. The heart rate, respiratory rate, oxygen saturations, blood pressure, adequacy of pulmonary ventilation, and response to care were monitored throughout the procedure. The physical status of the patient was re-assessed after the procedure. After obtaining informed consent, the endoscope was passed under direct vision. Throughout the procedure, the patient's blood pressure, pulse, and oxygen saturations were monitored continuously. The colonoscope was introduced through the mouth, and advanced to the fourth part of the duodenum. Small bowel enteroscopy was deemed necessary. The upper GI endoscopy was accomplished without difficulty. The patient tolerated the procedure well. Scope In: 7:05:21 AM Scope Out: 7:09:31 AM Total Procedure Duration Time 0 hours 4 minutes 10 seconds Findings: LA Grade A (one or more mucosal breaks less than 5 mm, not extending between tops of 2 mucosal folds) esophagitis with no bleeding was found 38 to 40 cm from the incisors. Biopsies were taken with a cold forceps for histology. Verification of patient identification for the specimen was done. Estimated blood loss was minimal. A hiatal hernia was present. Patchy mildly erythematous mucosa without bleeding was found in the gastric body. Biopsies were taken with a cold forceps for histology. Verification of patient identification for the specimen was done. Estimated blood loss was minimal. Biopsies were taken with a cold forceps for Helicobacter pylori testing. Patchy mildly erythematous mucosa without active bleeding and with no stigmata of bleeding was found in the entire duodenum. Biopsies were taken with a cold forceps for histology. Verification of patient identification for the specimen was done. Estimated blood loss was minimal. Impression: - LA Grade A reflux esophagitis with no bleeding. Biopsied. - Hiatal hernia. - Erythematous mucosa in the gastric body. Biopsied. - Erythematous duodenopathy. Biopsied. Recommendation: - Discharge patient to home. - Resume previous diet. - Continue present medications. - Await pathology results. Procedure Code(s): --- Professional --- 80716, Small intestinal endoscopy, enteroscopy beyond second portion of duodenum, not including ileum; with biopsy, single or multiple CPT copyright 2021 [employer]. All rights reserved. The codes documented in this report are preliminary and upon chemical cell changer review may be revised to meet current compliance requirements. Stefano Talbot DO 12/23/2024 7:44:09 AM This report has been signed electronically. Number of Addenda: 0 Note Initiated On: 12/23/2024 6:18 AM
--- NOTE | 2024-12-23 07:45 | OP.CCLET_ITS ---
12/23/2024 Gabo Godinez MD [address] [place] [address] Re : Upper GI endoscopy procedure for Abeba Juarez Dear Dr. Godinez This procedure was performed on November. My impressions and recommendations are as follows: Impressions : - LA Grade A reflux esophagitis with no bleeding. Biopsied. - Hiatal hernia. - Erythematous mucosa in the gastric body. Biopsied. - Erythematous duodenopathy. Biopsied. Recommendations : - Discharge patient to home. - Resume previous diet. - Continue present medications. - Await pathology results. My findings are described in the full procedure note, which is enclosed. If I can be of further assistance, please feel free to contact me at . Sincerely, Stefano Talbot, 12/23/2024 7:44:09 AM This report has been signed electronically.
--- NOTE | 2024-12-23 07:48 | OP.CCLET_ITS ---
12/23/2024 Gabo Godinez MD [address] [place] [address] Re : Colonoscopy procedure for Abeba Juarez Dear Dr. Godinez This procedure was performed on November. My impressions and recommendations are as follows: Impressions : - Diverticulosis in the recto-sigmoid colon, in the sigmoid colon, in the descending colon and at the splenic flexure. - Congested mucosa in the entire examined colon. Biopsied. - Congested mucosa in the terminal ileum. Biopsied. Recommendations : - Discharge patient to home. - Resume previous diet. - Continue present medications. - Await pathology results. - Repeat colonoscopy in 5 years for surveillance. My findings are described in the full procedure note, which is enclosed. If I can be of further assistance, please feel free to contact me at . Sincerely, Stefano Talbot, 12/23/2024 7:47:42 AM This report has been signed electronically.
--- NOTE | 2024-12-23 07:48 | OP.COLON_ITS ---
Patient Name: Abeba Juarez Procedure Date: 12/23/2024 7:09 AM Date of : 1965 Age: 59 Procedure: Colonoscopy Indications: Screening for colorectal malignant neoplasm Providers: Stefano Talbot DO Referring MD: Gabo Godinez MD Medicines: Monitored Anesthesia Care Patient Profile: This is a 59 year old female. Refer to note in patient chart for documentation of history and physical. Patient has symptoms of chronic abdominal cramping, chronic epigastric abdominal pain, chronic dyspepsia and chronic nausea. Last Colonoscopy: several years ago. Complications: No immediate complications. Procedure: Pre-Anesthesia Assessment: - Prior to the procedure, a History and Physical was performed, and patient medications and allergies were reviewed. The patient is competent. The risks and benefits of the procedure and the sedation options and risks were discussed with the patient. All questions were answered and informed consent was obtained. Patient identification and proposed procedure were verified by the physician in the pre-procedure area. Mental Status Examination: alert and oriented. Airway Examination: normal oropharyngeal airway and neck mobility. Respiratory Examination: clear to auscultation. CV Examination: normal. Prophylactic Antibiotics: The patient does not require prophylactic antibiotics. Prior Anticoagulants: The patient has taken no anticoagulant or antiplatelet agents except for NSAID medication. ASA Grade Assessment: II - A patient with mild systemic disease. After reviewing the risks and benefits, the patient was deemed in satisfactory condition to undergo the procedure. The anesthesia plan was to use monitored anesthesia care (MAC). Immediately prior to administration of medications, the patient was re-assessed for adequacy to receive sedatives. The heart rate, respiratory rate, oxygen saturations, blood pressure, adequacy of pulmonary ventilation, and response to care were monitored throughout the procedure. The physical status of the patient was re-assessed after the procedure. After I obtained informed consent, the scope was passed under direct vision. Throughout the procedure, the patient's blood pressure, pulse, and oxygen saturations were monitored continuously. The colonoscope was introduced through the anus and advanced to the terminal ileum. The colonoscopy was performed without difficulty. The patient tolerated the procedure well. The quality of the bowel preparation was adequate. The terminal ileum, ileocecal valve, appendiceal orifice, and rectum were photographed. Scope In: 7:12:04 AM Scope Withdrawal Time 0 hours 11 minutes 50 seconds Scope Out: 7:33:03 AM Total Procedure Duration Time 0 hours 20 minutes 59 seconds Findings: The perianal and digital rectal examinations were normal. Multiple small and large-mouthed diverticula were found in the recto-sigmoid colon, sigmoid colon, descending colon and splenic flexure. An area of mildly congested mucosa was found in the entire colon. Biopsies were taken with a cold forceps for histology. Verification of patient identification for the specimen was done. Estimated blood loss was minimal. A patchy area of the terminal ileum was congested. Biopsies were taken with a cold forceps for histology. Verification of patient identification for the specimen was done. Estimated blood loss was minimal. Impression: - Diverticulosis in the recto-sigmoid colon, in the sigmoid colon, in the descending colon and at the splenic flexure. - Congested mucosa in the entire examined colon. Biopsied. - Congested mucosa in the terminal ileum. Biopsied. Recommendation: - Discharge patient to home. - Resume previous diet. - Continue present medications. - Await pathology results. - Repeat colonoscopy in 5 years for surveillance. Procedure Code(s): --- Professional --- 27836, Colonoscopy, flexible; with biopsy, single or multiple CPT copyright 2021 [employer]. All rights reserved. The codes documented in this report are preliminary and upon electric shovel operator review may be revised to meet current compliance requirements. Stefano Talbot DO 12/23/2024 7:47:42 AM This report has been signed electronically. Number of Addenda: 0 Note Initiated On: 12/23/2024 7:09 AM
[2024-12-23 07:50] VITALS: BP 139/90; BP 161/83; PULSE 98; RESP 18; TEMP 36.4; O2SAT 96
[2024-12-23 08:11] VITALS: BP 161/83
--- NOTE | 2024-12-23 11:09 | PCM.POSTANE2 ---
Anesthesia Postop Eval I Sum Postop Eval Completion status Anesthesia document: Postop Eval 1 completed: Yes Anesthesia Postop Eval I Summary Anesthesia Postop Eval I Summary: Anesthesia Postop Eval I: Assessment Summary Airway patent Yes 12/23/24 07:45 [email or web address] Spontaneous unlabored Yes 12/23/24 07:45 [email or web address] respirations Mental status Awake,Calm 12/23/24 07:45 [email or web address] nausea No 12/23/24 07:45 [email or web address] Vomiting No 12/23/24 07:45 [email or web address] Anesthesia Postop Eval I: Fluid Summary Crystalloid volume administer 700 12/23/24 07:45 [email or web address] (ml) Colloids volume administered ( ml) Blood Product volume administered (ml) Total IV fluid infused 700 12/23/24 07:45 [email or web address] Anesthesia Postop Eval I: Summary Notes Anesthesia Complication No 12/23/24 07:45 [email or web address] Anesthesia Complication Comment: Post-operative progress note Anesthesia: Postop Eval II Evaluation Mental status: Awake Pain Level: 0 nausea: No Vomiting: No Complications Anesthesia Complication: No
== END 2024-12-23 08:12 | disposition home or self-care (01) ==
LOC: EN 05:34 → AC 05:43
PROVIDERS: PCP Family Medicine Geriatric Medicine; Referring Provider Family Medicine Geriatric Medicine; Visit Provider Internal Medicine Gastroenterology
PROC: 0DJD8ZZ Inspection of Lower Intestinal Tract, Via Natural or Artificial Opening Endoscopic (ICD-10-PCS; CPT 45378; principal; 2024-12-23 06:25)
DX: Z12.11 Encounter for screening for malignant neoplasm of colon (principal); K57.30 Diverticulosis of large intestine without perforation or abscess without bleeding; K21.00 Gastro-esophageal reflux disease with esophagitis, without bleeding; K31.89 Other diseases of stomach and duodenum; K44.9 Diaphragmatic hernia without obstruction or gangrene; R74.01 Elevation of levels of liver transaminase levels; R19.7 Diarrhea, unspecified; I10 Essential (primary) hypertension; F17.210 Nicotine dependence, cigarettes, uncomplicated; Z79.899 Other long term (current) drug therapy
CPT/HCPCS: 45380; 44361; 88305; 88342; J2405

== ENCOUNTER → 2024-12-27 | Outpatient (CLI) | payer MEDICAID, SELFPAY ==
--- NOTE | 2024-12-27 14:14 | CT_ITS ---
PROCEDURE: CT SOFT TISSUE NECK WITH CONTRAST 12/27/2024 REASON FOR EXAM: SWELLING MASS AND LUMP ON NECK DIFFICULTY SWALLOWING. ENDOSCOPE SHOWED MASS. VOCAL CHANGES. TECHNIQUE: CT of the soft tissues of the neck from the orbits to the upper mediastinum with intravenous contrast. Contiguous axial scans of 2.5 mm slice thicknesses. Sagittal and coronal reconstruction images were obtained. One or more dose reduction techniques were used (e.g., automated exposure control, adjustment of mA and/or kv according to patient size, use of iterative reconstruction technique). CONTRAST: ISOVUE 370 VOLUME: 75 mL RADIATION DOSE SUMMARY: DLP: 602.04 mGycm COMPARISON: NO RELEVANT PRIOR. FINDINGS: The neck compartments are well demarcated. No abnormality seen in the nasopharynx. No abnormality seen in the oropharynx. Unremarkable parapharyngeal fat space. A slightly lobulated mass is seen in the left side of the hypopharynx at the base of the tongue just anterior to the epiglottis. This mass measures 2.0 x 1.0 cm, axial image 66. Salivary glands: Parotid, submandibular, and thyroid glands are unremarkable. Lymph nodes: No suspicious lymphadenopathy. Vasculature: Unremarkable. Orbits: Unremarkable. Paranasal sinuses and mastoids: No signs of inflammation. Lung apices: Unremarkable. Upper mediastinum: No aneurysms, adenopathy, or other abnormalities. Bones: Mild multilevel spondylosis. Degenerative arthritic change involving the atlantoaxial articulation. Other: Artifact from dental enhancements. CT/Soft Tissue Neck WITH Contrast IMPRESSION: 1. A left-sided base of the tongue lobulated mass, 2.0 x 1.0 cm. This mass is most concerning for carcinoma. 2. Other nonacute findings detailed above. Reading Location: [place] [id number]
== END | disposition home or self-care (01) ==
LOC: CT 13:53
PROVIDERS: PCP Family Medicine Geriatric Medicine
DX: R22.1 Localized swelling, mass and lump, neck (principal)
CPT/HCPCS: 70491; Q9967

== ENCOUNTER → 2025-02-24 | Outpatient (CLI) | payer MEDICAID, SELFPAY ==
[2025-02-24 10:46] LABS: Hematocrit 48.2 % (37-47); Hemoglobin 16.0 g/dL (12.0-15.0); Immature Granulocytes Count 0.030 X10^3/uL (0.0-0.0); Mean Corp Hgb Conc 33.2 g/dL (32-36); Mean Corpuscular Volume 90.6 fL (81-99); Mean Platelet Vol. 9.3 fl (6.2-12.0); NRBC Flagged by Analyzer 0 % (0-5); Platelet Count 454 K/mm3 (150-450); RBC Distribution Width CV 13.2 % (11.6-14.6); RBC Distribution Width SD 43.6 fl (35.1-43.9); Red Blood Count 5.32 M/mm3 (4.2-5.4); White Blood Count 9.7 K/mm3 (4.4-11.0)
[2025-02-24 10:56] LABS: Prothrombin Time (Protime)PT. 12.9 SECONDS (11.7-14.9)
[2025-02-24 11:52] LABS: AST(SGOT) 26 U/L (<=31); Alanine Aminotransfer ALT/SGPT 42 U/L (<=34); Albumin, Serum 4.2 g/dL (3.5-5.0); Alkaline Phosphatase 168 U/L (35-104); Anion Gap 14 (5-15); BUN 12 mg/dL (4-19); BUN/Creat Ratio 17.1 RATIO (10-20); CRP 19.30 mg/L (0.0-3.0); Calcium,Total 9.7 mg/dL (7.6-11.0); Carbon Dioxide 23.9 mmol/L (21.0-32.0); Chloride 103 mmol/L (98-108); Cholesterol 276 mg/dL (<=200); Globulin 3.4 g/dL (2.2-4.2); Glucose 147 mg/dL (70-99); Low Density Lipoprotein Calc. 181 mg/dL; Potassium 3.8 mmol/L (3.3-5.1); Triglycerides 243 mg/dL; Very Low Density Lipoprotein 49 mg/dL (5-40); cholesterol:hdl ratio screen 5.92
[2025-02-25 15:08] LABS: ANTINUCLEAR ANTIBODIES DIRECT Negative (Negative)
[2025-03-01 07:08] LABS: Cytoplasmic Ab (C-ANCA) <1:20 titer (Neg:<1:20); IgG, Quant 961 mg/dL (586-1602); Immunoglobulin G, Subclass 1 494 mg/dL (248-810); Immunoglobulin G, Subclass 2 238 mg/dL (130-555); Immunoglobulin G, Subclass 3 29 mg/dL (15-102); Immunoglobulin G, Subclass 4 38 mg/dL (2-96); Perinuclear Ab (P-ANCA) <1:20 titer (Neg:<1:20)
[2025-03-02 00:07] LABS: Albumin 3.6 g/dL (2.9-4.4); Anti-Smooth Muscle ABS 4 Units (0-19); Copper, Serum or Plasma 152 ug/dL (80-158); GGTP 182 IU/L (0-60); Gamma Globulin 0.9 g/dL (0.4-1.8); Immunoglobulin A 234 mg/dL (87-352); Immunoglobulin G 939 mg/dL (586-1602); Immunoglobulin M 66 mg/dL (26-217); PROEL- TOTAL PROTEIN 6.8 g/dL (6.0-8.5)
== END | disposition home or self-care (01) ==
LOC: LAB 10:02
PROVIDERS: Nurse Practitioner Acute Care; PCP Family Medicine Geriatric Medicine; Referring Provider Internal Medicine; Visit Provider Internal Medicine
DX: R76.8 Other specified abnormal immunological findings in serum (principal); R74.8 Abnormal levels of other serum enzymes; R15.9 Full incontinence of feces; R19.7 Diarrhea, unspecified; R10.84 Generalized abdominal pain; R14.0 Abdominal distension (gaseous)
CPT/HCPCS: 86225; 36415; 80053; 80061; 82390; 82525; 82784; 82785; 82787; 82977; 83036; 83516; 84165; 85025; 85610; 86037; 86038; 86140; 86334

== ENCOUNTER → 2025-04-21 | Outpatient (CLI) | payer MEDICAID, SELFPAY ==
[2025-04-21 16:51] LABS: Hematocrit 45.9 % (37-47); Hemoglobin 15.3 g/dL (12.0-15.0); Immature Granulocytes Count 0.070 X10^3/uL (0.0-0.0); Mean Corp Hgb Conc 33.3 g/dL (32-36); Mean Corpuscular Volume 89.8 fL (81-99); Mean Platelet Vol. 9.1 fl (6.2-12.0); NRBC Flagged by Analyzer 0 % (0-5); Platelet Count 506 K/mm3 (150-450); RBC Distribution Width CV 13.0 % (11.6-14.6); RBC Distribution Width SD 42.9 fl (35.1-43.9); Red Blood Count 5.11 M/mm3 (4.2-5.4); White Blood Count 13.4 K/mm3 (4.4-11.0)
[2025-04-21 17:15] LABS: AST(SGOT) 36 U/L (<=31); Alanine Aminotransfer ALT/SGPT 53 U/L (<=34); Albumin, Serum 4.2 g/dL (3.5-5.0); Alkaline Phosphatase 144 U/L (35-104); Anion Gap 20 (5-15); BUN 12 mg/dL (4-19); BUN/Creat Ratio 14.4 RATIO (10-20); Calcium,Total 9.9 mg/dL (7.6-11.0); Carbon Dioxide 18.8 mmol/L (21.0-32.0); Chloride 100 mmol/L (98-108); Cholesterol 266 mg/dL (<=200); Globulin 2.3 g/dL (2.2-4.2); Glucose 120 mg/dL (70-99); Low Density Lipoprotein Calc. 158 mg/dL; Potassium 3.6 mmol/L (3.3-5.1); Triglycerides 312 mg/dL; Very Low Density Lipoprotein 62 mg/dL (5-40); cholesterol:hdl ratio screen 5.77
[2025-04-21 17:23] LABS: Vitamin D,25 Hydroxy 23.7 ng/mL (30-100)
[2025-04-21 17:39] LABS: Prothrombin Time (Protime)PT. 12.7 SECONDS (11.7-14.9)
== END | disposition home or self-care (01) ==
LOC: POLAB3 16:00
PROVIDERS: Internal Medicine; PCP Family Medicine Geriatric Medicine; Visit Provider Family Medicine Geriatric Medicine
DX: I10 Essential (primary) hypertension (principal); E03.9 Hypothyroidism, unspecified; E78.5 Hyperlipidemia, unspecified; R74.8 Abnormal levels of other serum enzymes; R76.8 Other specified abnormal immunological findings in serum; R71.8 Other abnormality of red blood cells
CPT/HCPCS: 36415; 80053; 80061; 82306; 84443; 85025; 85610

== ENCOUNTER → 2025-05-24 | Outpatient (CLI) | payer MEDICAID, SELFPAY | END | disposition home or self-care (01) | LOC: PSN 09:56 | PROVIDERS: PCP Family Medicine Geriatric Medicine; Referring Provider Family Medicine Geriatric Medicine; Visit Provider Family Medicine Geriatric Medicine | DX: R06.02 Shortness of breath (principal); F17.210 Nicotine dependence, cigarettes, uncomplicated | CPT/HCPCS: 94060; 94726; 94729 ==

== ENCOUNTER → 2025-05-26 | Outpatient (CLI) | payer MEDICAID, SELFPAY ==
--- NOTE | 2025-05-26 13:16 | MRI_ITS ---
PROCEDURE: MRI/Abdomen without Contrast
== END | disposition home or self-care (01) ==
LOC: OPMRI 13:14
PROVIDERS: PCP Family Medicine Geriatric Medicine; Referring Provider Nurse Practitioner Acute Care; Visit Provider Nurse Practitioner Acute Care
DX: R74.01 Elevation of levels of liver transaminase levels (principal); R76.89 Other specified abnormal immunological findings in serum
CPT/HCPCS: 74181

== ENCOUNTER → 2025-07-04 | Outpatient (CLI) | payer MEDICAID, SELFPAY ==
--- NOTE | 2025-07-04 12:40 | CT_ITS ---
PROCEDURE: ABDOMEN/PELVIS WITH CONTRAST 07/04/2025 REASON FOR EXAM: ABD PAIN/ DISTENSION ORAL AND IV TECHNIQUE: Procedure Code: [id number] Modality: CT Procedure: ABDOMEN/PELVIS WITH CONTRAST Coronal and Sagittal reconstruction series were provided. CONTRAST: Isovue-300 VOLUME: 100 mL One or more dose reduction techniques were used (e.g., Automated exposure control, adjustment of the mA and/or kV according to patient size, use of iterative reconstruction technique. RADIATION DOSE SUMMARY: CTDlvol: 20.98 mGy DLP: DLP 1019.55 mGycm COMPARISON: None FINDINGS: Lung bases: Mild dependent atelectasis Liver: Normal size. No mass. Gallbladder: Surgically absent. Spleen: Normal size. There are small calcified splenic granulomata. Pancreas: Normal size without evidence of mass surrounding inflammation or ductal dilation. Adrenals: Renal the adrenal glands appear normal. Kidneys: Kidneys are unremarkable. Bladder: Bladder is unremarkable. The bladder lumen is not opacified on this corticomedullary phase CT examination therefore bladder detail is reduced on this study. Reproductive Organs: Reproductive organs the uterine size and contour are normal. The adnexal regions are unremarkable. Bowel: There are numerous diverticula at the descending colon and sigmoid colon and these measure up to 16 mm in diameter. There are a few sub 10 mm diameter diverticula at the distal descending colon. There is no evidence of diverticulitis, ileus, nor bowel obstruction. Appendix: Appendix has a normal appearance. Lymph nodes: There is no evidence of adenopathy. Vasculature: Vasculature there is a slight to moderate amount of mixed calcified and noncalcified atheromatous plaque at the abdominal aorta and at iliac arteries. Peritoneum / Retroperitoneum: Peritoneal there is no ascites nor free intraperitoneal gas. Bones: There is grade 1 anterior spondylolisthesis of L4 with respect to L5. There is slight narrowing of the L4-L5 disc. CT/Abdomen/Pelvis WITH Contrast IMPRESSION: Distal colonic diverticulosis. Grade 1 anterior spondylolisthesis of L4 no evidence of an acute process. Reading Location: [id number]
== END | disposition home or self-care (01) ==
LOC: CT 12:37
PROVIDERS: PCP Family Medicine Geriatric Medicine; Referring Provider Student in an Organized Health Care Education/Training Program; Visit Provider Student in an Organized Health Care Education/Training Program
DX: R10.9 Unspecified abdominal pain (principal); R14.0 Abdominal distension (gaseous); R19.7 Diarrhea, unspecified
CPT/HCPCS: 74177; Q9967